=== PATIENT | female | born 1965 | race Caucasian/White ===

== ENCOUNTER 2019-11-23 08:55 | Outpatient (CLI) | payer OTHER, SELFPAY ==
--- NOTE | 2019-11-23 11:00 | NEURO_ITS ---
Patient Number: [id number] Impression: # Complains of right upper extremity paresthesia and discomfort. # No Carpal Tunnel Syndrome or ulnar neuropathy. # Normal needle/EMG exam. # Clinical correlation recommended; higher involvement needs to be ruled out. Nerve Conduction Studies Anti Sensory Summary Table Stim Site NR Peak (ms) P-T Amp (?V) Site1 Site2 Delta-P (ms) Dist (cm) Luis Eduardo (m/s) Right Median Anti Sensory (2-3nd Digit) Wrist 3.4 35.0 Wrist 2-3nd Digit 3.4 14.0 41 Wrist 5.0 30.1 Wrist 2-3nd Digit 3.4 14.0 41 Right Radial Anti Sensory (Base 1st Digit) Wrist 2.5 10.6 Wrist Base 1st Digit 2.5 0.0 Right Ulnar Anti Sensory (5th Digit) Wrist 2.4 47.1 Wrist 5th Digit 2.4 14.0 58 Motor Summary Table Stim Site NR Onset (ms) O-P Amp (mV) Site1 Site2 Delta-0 (ms) Dist (cm) Luis Eduardo (m/s) Right Median Motor (Abd Poll Brev) Wrist 3.6 2.3 Elbow Wrist 5.1 27.0 53 Elbow 8.7 2.1 Right Ulnar Motor (Abd Dig Minimi) Wrist 3.2 3.2 A Elbow Wrist 4.5 27.0 60 A Elbow 7.7 1.9 F Wave Studies NR F-Lat (ms) L-R F-Lat (ms) Right Median (Mrkrs) (Abd Poll Brev) 27.49 Right Ulnar (Mrkrs) (Abd Dig Min) 26.43 EMG Side Muscle Nerve Root Ins Act Fibs Amp Dur Recrt Comment Right 1stDorInt Ulnar C8-T1 Nml Nml Nml Nml Nml Right Ext Indicis Radial (Post Int) C7-8 Nml Nml Nml Nml Nml Right Ext Digitorum Radial (Post Int) C7-8 Nml Nml Nml Nml Nml Right BrachioRad Radial C5-6 Nml Nml Nml Nml Nml Right PronatorTeres Median C6-7 Nml Nml Nml Nml Nml Right Abd Poll Brev Median C8-T1 Nml Nml Nml Nml Nml Right ABD Dig Min Ulnar C8-T1 Nml Nml Nml Nml Nml Right Biceps Musculocut C5-6 Nml Nml Nml Nml Nml Right Triceps Radial C6-7-8 Nml Nml Nml Nml Nml MTDD
== END 2019-11-23 08:56 | disposition home or self-care (01) ==
LOC: ANHNEURO 08:57
PROVIDERS: PCP Internal Medicine Gastroenterology; Visit Provider Internal Medicine Gastroenterology
DX: R20.9 Unspecified disturbances of skin sensation (principal)
CPT/HCPCS: 95886; 95909

== ENCOUNTER 2020-01-28 08:01 | Outpatient (CLI) | payer OTHER, SELFPAY ==
--- NOTE | ~2020-01-28 | MM_ITS ---
EXAMINATION: MM screening tram BI w brain HISTORY: Screening mammogram TECHNIQUE: Craniocaudal and mediolateral oblique 3-D tomosynthesis images were obtained and synthetic 2-D images were generated. CAD analysis was submitted and interpreted. COMPARISON: 01/21/2019, 12/06/2017, 12/04/2016, 11/29/2015 BREAST PARENCHYMAL COMPOSITION: There are scattered areas of fibroglandular density. FINDINGS: RIGHT BREAST: There is possible architectural distortion best appreciated 10 cm from the nipple in th e slightly upper breast on the mediolateral oblique view. LEFT BREAST: There is no evidence of suspicious mass, calcification, or architectural distortion to s uggest malignancy. There has been no significant interval change. IMPRESSION: 1. Possible right breast architectural distortion. 2. Additional mammographic views and possible breast ultrasound are recommended. BI-RADS Category 0: Incomplete: Needs additional imaging evaluation. Reviewed, dictated and finalized at location A. IMPRESSION: 1. Possible right breast architectural distortion. 2. Additional mammographic views and possible breast ultrasound are recommended . BI-RADS Category 0: Incomplete: Needs additional imaging evaluation.
--- NOTE | ~2020-01-28 | DEXA_ITS ---
Bone Density Report Name: Ami Sepulveda Age: 54 Sex: Female Ethnicity: White Date of : 1965 Indication: postmenopausal; Referring Provider: MEDARDO, ARMANDO John Study: Bone densitometry was performed. Exam Date: January 28, 2020 Accession number: [id number] Bone Density: Region BMD T-score Z-score Classification AP Spine (L1, L2) 0.952 -0.2 0.6 Normal Femoral Neck (Left) 0.722 -1.1 -0.3 Osteopenia Total Hip (Left) 0.959 0.1 0.7 Normal Total Hip Bilateral Avg 0.984 0.3 0.9 Normal Femoral Neck (Right) 0.762 -0.8 0.1 Normal Total Hip (Right) 1.008 0.5 1.1 Normal World Health Organization criteria for BMD impression classify patients as: Normal (T-score at or above -1.0), Osteopenia (T-score between -1.0 and -2.5), or Osteoporosis (T-score at or below -2.5). 10-year Fracture Risk(1): Major Osteoporotic Fracture 4.5% Hip Fracture 0.2% Reported Risk Factors: [place] (), Neck BMD=0.722, BMI=36.1 (1) FRAX(R) Version 3.08. Fracture probability calculated for an untreated patient. Fracture probability may be lower if the patient has received treatment. Clinical Information Provided by Patient: Has used the following medications: Calcium Patient maximum height was 62 Menopause Age: 51 Drinks caffeinated beverages Onset of menses at age 13 Number of children 2 Impression: The patient has low bone mass, based on the Left Femoral Neck T-score. The patient has an estimated ten-year risk of hip fracture of 0.2% and an estimated ten-year risk of major fracture of 4.5%, based on the WHO FRAX algorithm. Discussion: BONE DENSITY IS LOW AT ONE OR MORE SKELETAL SITES. This patient's lowest T-score is low at one or more skeletal sites. It meets the World Health Organization's (WHO) criteria for ?low bone mass? (T-score between -1.0 and -2.5). The patient's 10-year risk of fracture as calculated by FRAX is less than the threshold where pharmacological therapy is recommended by the National Osteoporosis Foundation (NOF). However, all treatment decisions require clinical judgment and consideration of individual patient factors, including patient preferences, comorbidities, previous drug use, risk factors not captured in the FRAX model (e.g., frailty, falls, vitamin D deficiency, increased bone turnover, interval significant decline in bone density) and possible under or overestimation of fracture risk by FRAX. The patient should follow a healthful lifestyle (good nutrition with adequate calcium and vitamin D, and appropriate weight-bearing exercise). Follow-Up: Consider repeating this study in 2 to 3 years to reassess this patient's status, or sooner if there is some new clinical indication. Reported by: [facility] on 01/28/2020 8:29:00 AM. Reviewed
== END 2020-01-28 08:02 | disposition home or self-care (01) ==
LOC: ANHIMG 08:02
PROVIDERS: PCP Internal Medicine Gastroenterology; Visit Provider Obstetrics & Gynecology
DX: Z12.31 Encounter for screening mammogram for malignant neoplasm of breast (principal); Z78.0 Asymptomatic menopausal state; R92.8 Other abnormal and inconclusive findings on diagnostic imaging of breast; M85.852 Other specified disorders of bone density and structure, left thigh
CPT/HCPCS: 77063; 77067; 77080

== ENCOUNTER 2020-02-22 11:46 | Outpatient (CLI) | payer OTHER, SELFPAY ==
--- NOTE | ~2020-02-22 | US_ITS ---
US breast RT limited DATE: 02/22/2020 12:24 INDICATION: Architectural distortion in right breast on screening mammogram of 01/20/2020 bilateral di gital screening mammogram please refer to the combined combined diagnostic mammogram and ultrasound r eport. IMPRESSION: BI-RADS Category 2: Benign Reviewed, dictated and finalized at Location A. Reviewed, dictated and finalized at location A. IMPRESSION: BI-RADS Category 2: Benign
--- NOTE | ~2020-02-22 | MM_ITS ---
EXAMINATION: MM diagnostic mammo unilat RT HISTORY: Possible right breast architectural distortion reported in right breast TECHNIQUE: Additional 3-D tomosynthesis images of the right breast were performed and synthetic 2-D i mages were generated. CAD analysis was submitted and interpreted. High resolution upper outer quadran t right breast ultrasound was performed. COMPARISON: 01/28/2020, 11/29/2015 bilateral digital screening mammogram 12/06/2017 bilateral digital screening mammogram examinations FINDINGS: MAMMOGRAPHIC FINDINGS: No reproducible mass is identified. No malignant calcification or skin thickening or retraction is ev ident. ULTRASOUND: No suspicious mass or shadowing is detected the upper outer quadrant. IMPRESSION: 1. No mammographic evidence of malignancy 2. Routine mammographic screening is recommended. BI-RADS Category 2: Benign finding(s). Reviewed, dictated and finalized at location A.
== END 2020-02-22 11:47 | disposition home or self-care (01) ==
PROVIDERS: PCP Internal Medicine Gastroenterology; Visit Provider Obstetrics & Gynecology
DX: R92.8 Other abnormal and inconclusive findings on diagnostic imaging of breast (principal)
CPT/HCPCS: 76642; 77065

== ENCOUNTER 2020-03-08 01:48 | Outpatient (CLI) | payer OTHER, SELFPAY ==
[2020-03-08 19:19] LABS: SARS-CoV-2 RNA PCR Negative
== END 2020-03-08 01:49 | disposition home or self-care (01) ==
LOC: ANHCOVIDDT 01:48
PROVIDERS: PCP Family Medicine; Visit Provider Internal Medicine Gastroenterology
DX: Z01.812 Encounter for preprocedural laboratory examination (principal); Z20.828 Contact with and (suspected) exposure to other viral communicable diseases
CPT/HCPCS: 87635; C9803; U0003

== ENCOUNTER 2020-03-10 00:55 | Day surgery (SDC) | payer OTHER, SELFPAY ==
[2020-03-03 14:10] VITALS: BMI 34.7
[2020-03-10] MEDS: LACTATED RINGERS 1,000 ML 150 ML IV CONT (07:02)
[2020-03-10 07:04] VITALS: BP 139/88; PULSE 64; RESP 16; TEMP 36.3; O2SAT 97; BMI 34.7
--- NOTE | 2020-03-10 07:42 | WPDANESEPPF ---
Anes - Initial Pre Proc Eval Procedure: Operation Date: 03/10/20 08:00 Proposed Procedures p Colonoscopy - Alex Hernandez MD Date/Time: 03/10/20 07:42 Surgeon: Alex Hernandez MD Pre Op Diagnosis: Rectal Bleeding Patient Data Age: 54 Gender: F Height: 5 ft 2 in Weight: 86.1 kg Last Vital Signs Temp 97.3 F L 03/10/20 07:04 Pulse 64 03/10/20 07:04 Resp 16 03/10/20 07:04 BP 139/88 03/10/20 07:04 Pulse Ox 97 03/10/20 07:04 Allergies Allergy/AdvReac Type Severity Reaction Status Date / Time erythromycin base Allergy Unknown Vomiting Verified 03/10/20 07:03 shellfish derived Allergy Unknown Vomiting Verified 03/10/20 07:03 Home Medications Medication Instructions Recorded Confirmed Type amlodipine 5 mg PO DAILY 03/03/20 03/03/20 History diclofenac sodium 75 mg PO DAILY 03/03/20 03/03/20 History lisinopril-hydrochlorothiazide 1 tablet PO DAILY 03/03/20 03/03/20 History Patient hx anesthesia problems: none Family hx anesthesia problems: none PMFSH Past Medical History Medical History (Updated 03/06/20 @ 09:32 by Rigoberto Adames MD) Essential (primary) hypertension Lumbar pain Osteoarthritis Sleep apnea Family History Family History Grandparent Family history of malignant neoplasm of cervix Other Family history of allergic disorder Family history of malignant neoplasm Hypertension Social History Social History Smoking status: Never smoker Alcohol intake: current Drinks per week: 6 Substance use type: does not use Living arrangements: with family Spiritual care concerns: No Anes - Eval Final PreProcedure Day of Procedure 03/10/20 07:42 Patient weight: overweight Heart: regular rate and rhythm Lungs: clear to auscultation Airway: Mallampati scale class II Neurological: alert and oriented Last oral intake: >/= 8 hours ASA classification: II Emergent: no Anesthetic plan: proceed Anesthesia type and monitoring: general GIVS and standard monitoring Informed Consent: The patient's anesthetic plan and its attendant risks and benefits were discussed with the patient/family/POA. Questions were solicited and answers provided to the satisfaction of the patient/family/POA.
--- NOTE | 2020-03-10 07:47 | WPDGICN ---
Assessment and Plan Assessment and plan (1) Rectal bleeding: Code(s): K62.5 - Hemorrhage of anus and rectum Status: Acute Additional Plan Patient has intermittent rectal bleeding. Plan is to evaluate with colonoscopy. High-fiber diet is suggested. Further recommendations will be given after endoscopy. GI Consult Note Consult date/time: 03/10/20 07:47 HPI: Ami Sepulveda is a 54 year old female seen in evaluation at the request of Dr Parra. Patient complains of intermittent rectal bleeding. She states over the last 6 months off and on has had bright red blood per rectum. This is become more intense over the last month. Typically bleeding will occur after a bowel movement. She describes it of streaks of blood on the stool. She states that but otherwise her bowel movements are normal. Past medical history is significant for a spinal fusion surgery. Review of Systems Review of Systems: All systems reviewed & are unremarkable except as noted in HPI and below PMFSH Past Medical History Medical History (Updated 03/10/20 @ 07:49 by Alex Hernandez MD) Essential (primary) hypertension Lumbar pain Osteoarthritis Sleep apnea Family History Family History Grandparent Family history of malignant neoplasm of cervix Other Family history of allergic disorder Family history of malignant neoplasm Hypertension Social History Social History Smoking status: Never smoker Alcohol intake: current Drinks per week: 6 Substance use type: does not use Living arrangements: with family Spiritual care concerns: No Meds Home Medications and Allergies Home Medications Medication Instructions Recorded Confirmed Type amlodipine 5 mg PO DAILY 03/03/20 03/03/20 History diclofenac sodium 75 mg PO DAILY 03/03/20 03/03/20 History lisinopril-hydrochlorothiazide 1 tablet PO DAILY 03/03/20 03/03/20 History Allergies Allergy/AdvReac Type Severity Reaction Status Date / Time erythromycin base Allergy Unknown Vomiting Verified 03/10/20 07:03 shellfish derived Allergy Unknown Vomiting Verified 03/10/20 07:03 Vital Signs Vital Signs - 24 hr 03/10/20 07:04 Temperature 97.3 F L Pulse Rate 64 Respiratory Rate 16 Blood Pressure 139/88 Pulse Oximetry 97 Exam Narrative: Exam Narrative: Physical exam reveals patient to be alert. Vital signs stable. HEENT exam unremarkable. Patient is anicteric. Lungs are clear to auscultation and percussion. Heart is without murmur or extra sounds. Abdominal exam bowel sounds are present soft nontender with no organomegaly. Digital external rectal exam is normal.
[2020-03-10 08:17] VITALS: BP 108/75; PULSE 73; RESP 16; O2SAT 99
[2020-03-10 08:25] VITALS: BP 108/75; PULSE 67; RESP 16; O2SAT 98
[2020-03-10 08:35] VITALS: BP 119/74; PULSE 59; RESP 18; O2SAT 100
== END 2020-03-10 08:55 | disposition home or self-care (01) ==
PROVIDERS: PCP Family Medicine; Visit Provider Internal Medicine Gastroenterology
PROC: 0DJD8ZZ Inspection of Lower Intestinal Tract, Via Natural or Artificial Opening Endoscopic (ICD-10-PCS; CPT 45378; principal; 2020-03-10 08:00)
DX: K62.5 Hemorrhage of anus and rectum (principal); D12.5 Benign neoplasm of sigmoid colon; K62.1 Rectal polyp; K64.8 Other hemorrhoids; I10 Essential (primary) hypertension; G47.30 Sleep apnea, unspecified
CPT/HCPCS: 45385; 88305; J2001; J2704; J7120

== ENCOUNTER 2020-03-11 07:28 | Outpatient (CLI) | payer OTHER, SELFPAY ==
--- NOTE | ~2020-03-11 | MR_ITS ---
EXAMINATION: MR cervical spine wo con DATE: 03/11/2020 08:18 INDICATION: Neck pain. Bilateral shoulder pain. Bilateral arm numbness and weakness. TECHNIQUE: Magnetic resonance imaging (MRI) of the cervical spine was performed without intravenous c ontrast. Sequences included sagittal T2-weighted FSE, sagittal T2-weighted FS FSE, sagittal T1-weight ed FSE, axial MERGE, and axial T2-weighted FSE. COMPARISON: None FINDINGS: There is kyphosis of cervical spine. There is 2 mm anterolisthesis of C4 on C5 and 2 mm ret rolisthesis of C5 on C6 and C6 on C7. Vertebral body heights are normal. There is mildly decreased di sc height at C4-C5, severely decreased disc height at C5-C6, and moderately decreased disc height at C6-C7. The spinal cord signal intensity is normal. The following disc levels are specifically discuss ed: C2-C3: The disc does not extend beyond the endplate margin. There is no uncovertebral joint osteoarth ritis. There is mild right and severe left facet joint osteoarthritis. There is mild left neural fora susan stenosis. There is no central canal stenosis. C3-C4: The disc is mildly bulging. There is mild bilateral uncovertebral joint osteoarthritis. There is severe right and moderate left facet joint osteoarthritis. There is mild bilateral neural foramina l stenosis. There is mild central canal stenosis. C4-C5: The disc does not extend beyond the endplate margin. There is mild bilateral uncovertebral angie nt osteoarthritis. There is mild right and severe left facet joint osteoarthritis. There is mild bila teral neural foraminal stenosis. There is no central canal stenosis. C5-C6: The disc is bulging. There is severe right and mild left uncovertebral joint osteoarthritis. T here is mild bilateral facet joint osteoarthritis. There is moderate right and mild left neural stiven inal stenosis. There is mild central canal stenosis with ventral indentation of spinal cord. C6-C7: The disc is bulging. There is moderate bilateral uncovertebral joint osteoarthritis. There is mild bilateral facet joint osteoarthritis. There is mild right and moderate left neural foraminal jean carlos nosis. There is mild central canal stenosis with ventral indentation of the spinal cord. C7-T1: The disc does not extend beyond the endplate margin. There is no uncovertebral joint osteoarth ritis. There is moderate right and severe left facet joint osteoarthritis. There is mild right and mo derate left neural foraminal stenosis. There is no central canal stenosis. IMPRESSION: 1. Severe cervical spondylosis. Reviewed, dictated and finalized at location A.
== END 2020-03-11 07:29 | disposition home or self-care (01) ==
PROVIDERS: PCP Family Medicine; Visit Provider Psychiatry & Neurology Neurology
DX: R20.9 Unspecified disturbances of skin sensation (principal); M47.812 Spondylosis without myelopathy or radiculopathy, cervical region
CPT/HCPCS: 72141

== ENCOUNTER 2020-10-31 18:09 | Emergency (ER) | payer OTHER, SELFPAY ==
[2020-10-31 18:33] VITALS: BP 148/100; PULSE 80; RESP 16; TEMP 37.4; O2SAT 99
--- NOTE | 2020-10-31 19:53 | ED.ANIMALBIT ---
HPI - Animal Bite General Chief Complaint: Animal Bite Stated Complaint: dog bite Time Seen by Provider: 10/31/20 18:44 Source: patient and RN notes reviewed Mode of arrival: ambulatory Limitations: no limitations History of Present Illness HPI narrative: Patient presents today complaining of a dog bite to her left forearm that was sustained 2 days ago. She is up-to-date on all vaccines. The dog is up-to-date on vaccines. She has been treating with ice, peroxide, and triple antibiotic ointment. She reports severe pain to her forearm with swelling and redness. She currently rates her pain 7/10. She is unable to attend work due to severe pain. Her sleep has been affected due to pain. MD complaint: animal bite Related Data Home Medications Medication Instructions Recorded Confirmed amlodipine 5 mg PO DAILY 03/03/20 10/31/20 Allergies Allergy/AdvReac Type Severity Reaction Status Date / Time erythromycin base Allergy Unknown Vomiting Verified 10/31/20 18:40 shellfish derived Allergy Unknown Vomiting Verified 10/31/20 18:40 Review of Systems Review of Systems: Narrative: CONSTITUTIONAL: Denies body aches, fever, chills, or sweats. EYES: Denies visual changes, redness, or discharge. ENT: Denies rhinorrhea, congestion, sore throat, or otalgia. CARDIOVASCULAR: Denies chest pain, palpitations, or edema. RESPIRATORY: Denies cough or dyspnea. GASTROINTESTINAL: Denies abdominal pain, nausea, vomiting, or diarrhea. GENITOURINARY: Denies dysuria or hematuria. SKIN: Denies rash, itching. + Dog bite to left forearm MUSCULOSKELETAL: Denies back pain, joint pain, or myalgia. NEUROLOGIC: Denies headache, numbness, tingling, or weakness. PSYCH: Denies depression or anxiety. [facility] Past Medical History Medical History BMI 34.0-34.9,adult Essential (primary) hypertension Lumbar pain Osteoarthritis Sleep apnea Family History Family History Grandparent Family history of malignant neoplasm of cervix Other Family history of allergic disorder Family history of malignant neoplasm Hypertension Social History Social History Alcohol intake: current Drinks per week: 6 Substance use type: does not use Spiritual care concerns: No Comments At time of signature, I have reviewed and agree with nursing past medical, surgical, social and family history unless otherwise noted. Please see nursing chart for further information. There is no relevant family history pertinent to the presenting complaint Exam Narrative: Exam Narrative: GENERAL: Well-appearing, well-nourished, and in moderate pain distress. HEAD: Normocephalic, atraumatic. EYES: EOMI. No redness or drainage. Conjunctivae normal. ENT: Mucous membranes pink and moist. NECK: Normal AROM. CHEST: No respiratory distress. EXTREMITIES: 2 x 0.5 cm dog bite wound to the dorsum of the left forearm. This is surrounded in a 7 x 11 cm area of erythema and edema to the dorsum of the forearm. Along the volar aspect of the arm, there is no dog bite, but there is an area of erythema and localized edema measuring approx 8x4cm. No induration or fluctuance noted. Entirety of the soft tissue of the forearm is very tender to palpation. There is no bony tenderness of the forearm noted. Patient has full range of motion of the wrist and elbow. Pronation and supination of the wrist does cause some discomfort in the forearm. Distal sensation intact. Capillary refill normal. Radial pulse normal. SKIN: Warm, dry, no rash. Capillary refill normal. Normal skin turgor. NEURO: No focal deficits. Alert and oriented x3. Gait steady. PSYCH: Normal affect. No signs of depression or anxiety. Course Course Emergency Course: Patient is a significant infection in her forearm, which could be related to covering
== END 2020-10-31 19:11 | disposition home or self-care (01) ==
PROVIDERS: Emergency Provider Nurse Practitioner; PCP Family Medicine
DX: S51.852A Open bite of left forearm, initial encounter (principal); W54.0XXA Bitten by dog, initial encounter; L08.9 Local infection of the skin and subcutaneous tissue, unspecified; I10 Essential (primary) hypertension; M19.90 Unspecified osteoarthritis, unspecified site; G47.30 Sleep apnea, unspecified
CPT/HCPCS: 99213; G0463

== ENCOUNTER 2021-03-19 15:38 | Outpatient (CLI) | payer OTHER, SELFPAY ==
--- NOTE | ~2021-03-19 | MM_ITS ---
EXAMINATION: MM screening tram BI w brain HISTORY: Screening mammogram TECHNIQUE: Craniocaudal and mediolateral oblique 3-D tomosynthesis images were obtained and synthetic 2-D images were generated. CAD analysis was submitted and interpreted. COMPARISON: 02/22/2020 diagnostic right mammogram and limited right breast ultrasound 01/20/2020, 01/21/2019, 12/06/2017 bilateral digital screening mammogram examinations BREAST PARENCHYMAL COMPOSITION: There are scattered areas of fibroglandular density. FINDINGS: There is no evidence of suspicious mass, calcification, or architectural distortion to sugg est malignancy in either breast. There has been no suspicious interval change. IMPRESSION: 1. No mammographic evidence of malignancy. 2. Recommend routine screening mammography in one year. BI-RADS Category 1: Negative Reviewed, dictated and finalized at location A.
== END 2021-03-19 15:39 | disposition home or self-care (01) ==
LOC: ANHIMG 15:44
PROVIDERS: PCP Family Medicine; Visit Provider Obstetrics & Gynecology
DX: Z12.31 Encounter for screening mammogram for malignant neoplasm of breast (principal)
CPT/HCPCS: 77063; 77067

== ENCOUNTER 2021-08-21 08:51 | Outpatient (CLI) | payer OTHER, SELFPAY ==
[2021-08-21 09:27] LABS: Hematocrit 41.8 % (37.0-47.0); Hemoglobin 14.1 g/dL (12.0-15.0); Mean Corpuscular HGB Conc 33.7 g/dl (32-36); Mean Corpuscular Hemoglobin 30.6 pg (26-34); Mean Corpuscular Volume 90.7 fl (80-100); Mean Platelet Volume 9.5 fl (7.4-10.4); Platelet Count Result 254 k/mm3 (150-375); Red Blood Count 4.61 M/mm3 (4.2-5.4); Red Cell Distribution Width 13.4 % (11.5-14.5); White Blood Count 5.5 K/mm3 (4.5-10.0)
[2021-08-21 09:40] LABS: Anion Gap 5 mmol/L (8-16); Blood Urea Nitrogen 12 mg/dL (7-17); Calcium 8.9 mg/dL (8.4-10.2); Carbon Dioxide 30 mmol/L (22-30); Chloride 102 mmol/L (98-107); Cholesterol 220 mg/dL (0-200); Estimated Glomerular Filt Rate > 60; Glucose 101 mg/dL (65-110); HDL Direct 43 mg/dL; Potassium 4.1 mmol/L (3.4-5.0); Sodium 137 mmol/L (137-145); Triglycerides 185 mg/dL (<150)
[2021-08-21 09:48] LABS: LDL Cholesterol Direct 125 mg/dL
== END 2021-08-21 08:52 | disposition home or self-care (01) ==
LOC: ANHLAB 09:01
PROVIDERS: PCP Family Medicine; Visit Provider Family Medicine
DX: Z13.220 Encounter for screening for lipoid disorders (principal); I10 Essential (primary) hypertension
CPT/HCPCS: 36415; 80048; 80061; 84443; 85027

== ENCOUNTER 2022-04-03 07:54 | Outpatient (CLI) | payer OTHER, SELFPAY ==
--- NOTE | ~2022-04-03 | MM_ITS ---
EXAMINATION: MM screening tram BI w brain HISTORY: Screening TECHNIQUE: Craniocaudal and mediolateral oblique 3-D tomosynthesis images were obtained and synthetic 2-D images were generated. CAD analysis was submitted and interpreted. COMPARISON: Comparison to multiple prior studies sequentially, with oldest reviewed study dated 09/2016. BREAST PARENCHYMAL COMPOSITION: Comparison to multiple prior studies sequentially, with oldest review ed study dated 12/04/2016. FINDINGS: There is no evidence of suspicious mass, calcification, or architectural distortion to sugg est malignancy in either breast. There has been no suspicious interval change. IMPRESSION: 1. No mammographic evidence of malignancy. 2. Recommend routine screening mammography in one year. BI-RADS Category 1: Negative Reviewed, dictated and finalized at location A.
== END 2022-04-03 07:55 | disposition home or self-care (01) ==
PROVIDERS: PCP Family Medicine; Visit Provider Obstetrics & Gynecology
DX: Z12.31 Encounter for screening mammogram for malignant neoplasm of breast (principal)
CPT/HCPCS: 77063; 77067

== ENCOUNTER 2022-08-15 07:05 | Outpatient (CLI) | payer OTHER, SELFPAY ==
[2022-08-15 07:29] LABS: Hematocrit 38.8 % (37.0-47.0); Hemoglobin 13.7 g/dL (12.0-15.0); Mean Corpuscular HGB Conc 35.3 g/dl (32-36); Mean Corpuscular Hemoglobin 30.7 pg (26-34); Mean Platelet Volume 9.4 fl (7.4-10.4); Platelet Count Result 291 k/mm3 (150-375); Red Blood Count 4.46 M/mm3 (4.2-5.4); Red Cell Distribution Width 12.6 % (11.5-14.5); White Blood Count 6.1 K/mm3 (4.5-10.0)
[2022-08-15 07:45] LABS: Anion Gap 4 mmol/L (8-16); Blood Urea Nitrogen 13 mg/dL (7-17); Calcium 9.1 mg/dL (8.4-10.2); Carbon Dioxide 31 mmol/L (22-30); Chloride 99 mmol/L (98-107); Cholesterol 205 mg/dL (0-200); Estimated Glomerular Filt Rate > 60; Glucose 100 mg/dL (65-110); HDL Direct 37 mg/dL; Potassium 4.1 mmol/L (3.4-5.0); Sodium 134 mmol/L (137-145); Triglycerides 208 mg/dL (<150)
[2022-08-15 07:55] LABS: LDL Cholesterol Direct 126 mg/dL
[2022-08-15 08:43] LABS: Hemoglobin A1C 5.3 % (<5.7)
== END 2022-08-15 07:06 | disposition home or self-care (01) ==
PROVIDERS: PCP Family Medicine; Visit Provider Family Medicine
DX: I10 Essential (primary) hypertension (principal); Z13.220 Encounter for screening for lipoid disorders; R73.09 Other abnormal glucose
CPT/HCPCS: 36415; 80048; 80061; 83036; 84443; 85027

== ENCOUNTER 2023-05-28 15:43 | Outpatient (CLI) | payer OTHER, SELFPAY ==
--- NOTE | ~2023-05-28 | MM_ITS ---
EXAMINATION: MM screening tram BI w brain HISTORY: Screening mammogram TECHNIQUE: Craniocaudal and mediolateral oblique 3-D tomosynthesis images were obtained and synthetic 2-D images were generated. CAD analysis was submitted and interpreted. COMPARISON: 04/2022, 03/19/2021 bilateral screening mammogram examinations BREAST PARENCHYMAL COMPOSITION: There are scattered areas of fibroglandular density. FINDINGS: There is no evidence of suspicious mass, calcification, or architectural distortion to sugg est malignancy in either breast. There has been no suspicious interval change. IMPRESSION: 1. No mammographic evidence of malignancy. 2. Recommend routine screening mammography in one year. BI-RADS Category 1: Negative Reviewed, dictated and finalized at location A. [facility]
== END 2023-05-28 15:44 | disposition home or self-care (01) ==
LOC: ANHIMG 15:45
PROVIDERS: PCP Family Medicine; Visit Provider Obstetrics & Gynecology
DX: Z12.31 Encounter for screening mammogram for malignant neoplasm of breast (principal)
CPT/HCPCS: 77063; 77067

== ENCOUNTER 2024-07-09 08:02 | Outpatient (CLI) | payer OTHER, SELFPAY ==
--- NOTE | ~2024-07-09 | MM_ITS ---
EXAMINATION: MM screening [facility] BI w brain HISTORY: Screening mammogram TECHNIQUE: Craniocaudal and mediolateral oblique 3-D tomosynthesis images were obtained and synthetic 2-D images were generated. CAD analysis was submitted and interpreted. COMPARISON: 05/28/2023, 04/03/2022, 03/19/2021 BREAST PARENCHYMAL COMPOSITION:Not Dense. There are scattered areas of fibroglandular density. FINDINGS: No suspicious mass, calcification, or architectural distortion are identified in either ciarra ast to suggest malignancy. There has been no suspicious interval change. IMPRESSION: No mammographic evidence of malignancy. Recommend routine screening mammography in one year. BI-RADS Category 1: Negative Reviewed, dictated and finalized at location . Y LEVEL PROJECT COORDINATOR
--- OUTSIDE RECORDS SUMMARY | 2024-07-09 08:10 | XMS_ITS | Referral Summary ---
Author Organization [facility] Building [address] [place] [phone] Care Team Providers Care Felt Checker Name Role Phone Rigoberto Adames MD Primary Care Provider Encounters Date Type Department Care Team Description 07/02/2024 Telephone [facility] Medical [facility] Orthopedics and Sports Medicine [address] [place] [phone] Matt Pfeiffer PA meds 06/30/2024 1:02 PM PRODUCTION COORDINATOR - 06/30/2024 11:59 PM PRODUCTION COORDINATOR Hospital Encounter [facility] Imaging [address] [place] [id number] Right knee pain, unspecified chronicity Discharge Disposition: Discharge to home or self care 06/30/2024 1:30 PM PRODUCTION COORDINATOR Office Visit [facility] Orthopedics and Sports Medicine [address] [place] [phone] Matt Pfeiffer PA Chronic pain of right knee (Primary Dx) 05/19/2024 9:17 AM PRODUCTION COORDINATOR - 05/19/2024 11:59 PM PRODUCTION COORDINATOR Hospital Encounter [address] [address] Essential hypertension, malignant Discharge Disposition: Discharge to home or self care 05/19/2024 9:15 AM PRODUCTION COORDINATOR Lab [facility] Medical Group Outpatient Lab at [address] [phone] Essential hypertension, malignant (Primary Dx) from Last 3 Months Allergies Active Allergy Reactions Criticality Noted Date Comments Erythromycin Base Unknown 12/28/2018 Shellfish Containing Products Nausea & Vomiting Low 02/13/2018 Medications lisinopril-hydro CHLOROthiazide (PRINZIDE,ZESTOR ETIC) 20-12.5 mg per tabletIndication s:hypertension 02/09/2018 Acti ve amLODIPine (NORVASC) 5 mg tablet Take 5 mg by mouth daily. Active calcium carbonate-vitami n D3 (CALTRATE 600 + D) 1500 mg (600 mg elemental) -400 units per tablet Take 1 tablet by mouth daily Active acetaminophen ER (TYLENOL) 650 mg 8 hr tablet Take 650 mg by mouth every 8 (eight) hours as needed for pain Active Active Problems No known active problems Social History Tobacco Use Types Packs/Day Years Used Date Smoking Tobacco: Never Smokeless Tobacco: Never Alcohol Use Standard Drinks/Week Comments Yes 0 (1 standard drink = 0.6 oz pur e alcohol) socially Comments Unknown Sex and Gender Information Value Date Recorded Sex Assigned at Not on file Legal Sex Female 9:06 AM CDT Gender Identity Not on file Sexual Orientation Not on file 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 file Not on file Not on file Last Filed Vital Signs Vital Sign Reading Time Taken Comments Blood Pressure 108/70 11/16/2019 9:26 AM CDT Pulse 80 09/28/2018 9:44 AM CDT Temperature 36.2 C (97.1 F) 07/24/2021 8:56 AM PRODUCTION COORDINATOR Respiratory Rate - - Oxygen Saturation - - Inhaled Oxygen Concentration - - Weight 68 kg (150 lb) 06/30/2024 1:11 PM PRODUCTION COORDINATOR Height 157.5 cm (5' 2 ) 06/30/2024 1:11 PM PRODUCTION COORDINATOR Body Mass Index 27.44 06/30/2024 1:11 PM PRODUCTION COORDINATOR Plan of Treatment Not on file Procedures Procedure Name Priority Date/Time Associated Diagnosis Comments XR KNEE RIGHT 3 VIEWS Schedule Routine, Read Routine (OP Routine) 06/30/2024 1:03 PM PRODUCTION COORDINATOR Right knee pain, unspecified chronicity EGFR Routine 05/19/2024 9:17 AM PRODUCTION COORDINATOR Essential hypertension, malignant TSH Routine 05/19/2024 9:17 AM PRODUCTION COORDINATOR Essential hypertension, malignant BASIC METABOLIC PANEL Routine 05/19/2024 9:17 AM PRODUCTION COORDINATOR Essential hypertension, malignant CBC WITHOUT DIFFERENTIAL Routine 05/19/2024 9:17 AM PRODUCTION COORDINATOR Essential hypertension, malignant LIPID PANEL Routine 05/19/2024 9:17 AM PRODUCTION COORDINATOR Essential hypertension, malignant from Last 3 Months Results * XR Knee Right 3 Views (06/30/2024 1:03 PM PRODUCTION COORDINATOR) Anatomical Region Laterality Modality Lower Extremities, Knee Right Computed Radiography 07/03/2024 7:20 AM PRODUCTION COORDINATOR Narrative 07/03/2024 7:20 AM PRODUCTION COORDINATOR EXAM DESCRIPTION: XR KNEE RIGHT 3 VIEWS REASON FOR STUDY: pain Medial side knee pain x 5 wks, NKI FINDINGS: Three views of the right knee are submitted for interpretation without comparison. The alignment of the right knee is anatomic. Joint spaces are normal. No fracture or effusion. IMPRESSION: Normal right knee radiographs. THIS IS AN ELECTRONICALLY VERIFIED FINAL REPORT 07/03/2024 7:20 AM - Electronically signed by Jeancarols Petersen M.D. T: Report ID: [id number] Reading Location: [id number] Procedure Note Jeancarlos Petersen MD - 07/03/2024 EXAM DESCRIPTION: XR KNEE RIGHT 3 VIEWS REASON FOR STUDY: pain Medial side knee pain x 5 wks, NKI FINDINGS: Three views of the right knee are submitted for interpretation without comparison. The alignment of the right knee is anatomic. Joint spaces are normal. No fracture or effusion. IMPRESSION: Normal right knee radiographs. THIS IS AN ELECTRONICALLY VERIFIED FINAL REPORT 07/03/2024 7:20 AM - Electronically signed by Jeancarlos Petersen M.D. T: Report ID: [id number] Reading Location: [id number] Matt [facility] IMG XR PROCEDURES Final R esult * eGFR (05/19/2024 9:17 AM PRODUCTION COORDINATOR) Pathologist [facility] [place] eGFR 72 >=60 mL/min/1. 73 m2 Comment: Interpretive Data Reference Interval Normal >/= 90 mL/min/1.73m2 Mildly decreased* 60 - 89 mL/min/1.73m2 Mildly to moderately decreased 45 - 59 mL/min/1.73m2 Moderately to severely decreased 30 - 44 mL/min/1.73m2 Severely decreased 15 - 29 mL/min/1.73m2 Kidney Failure < 15 mL/min/1.73m2 *Relative to young adult level Estimated glomerular filtration rate is determined by the 2020 CKD-EPI equation recommended by the National Kidney Foundation (A Unifying Approach to GFR Estimation: Recommendations of the NKF-ASK Task Force on Reassessing the Inclusion of Race in Diagnosing Kidney Disease, JASN 2020). The CKD-EPI equation should not be used for patients with unstable renal function and has not been validated in children and those over 70. Current interpretive data was last reviewed 2021. Blood 05/19/2024 9:17 AM PRODUCTION COORDINATOR 05/19/2024 10:26 PM PRODUCTION COORDINATOR us Rigoberto Estrellita Adames MD LAB BLOOD ORDERABLES Final R esult [facility] [id number] Department [place] [address] * (ABNORMAL) CBC without differential (05/19/2024 9:17 AM PRODUCTION COORDINATOR) Pathologist [facility] [place] WBC 5.3 3.8 - 9.9 K/cumm Hgb 14.0 11.9 - 15.5 g/dL [facility] Hct 44.0 35.6 - 45.5 % [facility] Plt 264 150 - 400 K/cumm [facility] MPV 10.2 9.1 - 12.3 fL [facility] RBC 4.49 3.90 - 5.20 M/cumm [facility] MCV 98.0(H) 81.3 - 96.4 fL [facility] MCH 31.2 27.1 - 33.3 pg [facility] MCHC 31.8(L) 32.3 - 35.7 g/dL [facility] RDW CV 13.6 11.1 - 14.9 % [facility] RDW SD 49.3(H) 35.7 - 48.1 fL [facility] NRBC abs 0.00 0.00 - 0.01 K/cumm [facility] Blood (Blood, Venous) 05/19/2024 9:17 AM PRODUCTION COORDINATOR 05/19/2024 6:57 PM PRODUCTION COORDINATOR Narrative [facility] - 05/19/2024 9:42 PM PRODUCTION COORDINATOR Fax results To Dr Rigoberto Adames [phone] Rigoberto Adames MD LAB BLOOD ORDERABLES Final R esult Performing Organization Address City/[facility] Co de Phone Number [facility] [phone] [place] [address] * TSH (05/19/2024 9:17 AM PRODUCTION COORDINATOR) Pathologist [facility] [place] Thyroid Stimulating Hormone 1.33 0.30 - 4.20 mcIUnit/mL Blood (Blood, Venous) 05/19/2024 9:17 AM PRODUCTION COORDINATOR 05/19/2024 6:57 PM PRODUCTION COORDINATOR Narrative KARTIK - 05/19/2024 10:58 PM PRODUCTION COORDINATOR Fax results To Dr Rigoberto Adames [phone] Rigoberto Adames MD LAB BLOOD ORDERABLES Final R esult Performing Organization Address City/[facility] Co de Phone Number K[facility]IK URIARTE [phone] [employer] [place], [place] [phone] * (ABNORMAL) Lipid panel (05/19/2024 9:17 AM PRODUCTION COORDINATOR) Cholesterol 213(H) 30 - 199 mg/dL Comment: Interpretive Data Ages < or = 19 years Acceptable: <170 mg/dL Borderline high: 170-199 mg/dL High: >or= 200 mg/dL Ages > or = 20 years Desirable: <200 mg/dL Borderline high: 200-239 mg/dL High: >or= 240 mg/dL Literature References: 1. Expert Panel on Integrated Guidelines for Cardiovascular Health and Risk Reduction in Children and Adolescents. Pediatrics 2011;128:S213 2. NCEP Expert Panel. Circulation 2004;110:227 Current Interpretive Data was last revised on 2018. Triglycerides 116 <=149 mg/dL [facility]IK Comment: Interpretive Data Ages < or = 9 years Acceptable: <75 mg/dL Borderline high: 75-99 mg/dL High: >or= 100 mg/dL Ages 10 to 20 years Acceptable: <90 mg/dL Borderline high: 90-129 mg/dL High: >or= 130 mg/dL Ages > or = 20 years Desirable: <150 mg/dL Borderline high: 150-199 mg/dL High: 200-499 mg/dL Very high: >or= 499 mg/dL Literature References: 1. Expert Panel on Integrated Guidelines for Cardiovascular Health and Risk Reduction in Children and Adolescents. Pediatrics 2011;128:S213 2. NCEP Expert Panel. Circulation 2004;110:227 Current Interpretive Data was last revised on 2018. HDL 50 >=40 mg/dL [facility] URIARTE Comment: Interpretive Data Ages < or = 19 years Acceptable: >45 mg/dL Borderline low: 40-45 mg/dL Low: <40 mg/dL Ages > or = 20 years Desirable: >or= 60 mg/dL Low: <40 mg/dL Literature References: 1. Expert Panel on Integrated Guidelines for Cardiovascular Health and Risk Reduction in Children and Adolescents. Pediatrics 2011;128:S213 2. NCEP Expert Panel. Circulation 2004;110:227 Current Interpretive Data was last revised on 2018. LDL, calculated 142(H) <=129 mg/dL [facility]IK Comment: Interpretive Data Ages < or = 19 years Acceptable: <110 mg/dL Borderline high: 110-129 mg/dL High: >or= 130 mg/dL Ages > or = 20 years Optimal: <100 mg/dL Near optimal: 100-129 mg/dL Borderline high: 130-159 mg/dL High: >160 mg/dL Calculated using the Pedraza LDL-C estimating equation. This equation was implemented on 2024. Prior to this date LDL-C was estimated using the Friedewald equation. Literature References: 1. Expert Panel on Integrated Guidelines for Cardiovascular Health and Risk Reduction in Children and Adolescents. Pediatrics 2011;128:S213 2. NCEP Expert Panel. Circulation 2004;110:227 3. Milo M et al. ANGELA Cardiol. 2020 September 30;5(5):540-548. doi: 10.1001/jamacardio.2020.0013 Current Interpretive Data was last revised on 2024. Non-HDL Cholesterol 163 mg/dL [facility] Comment: Interpretive Data Ages < or = 19 years Acceptable: <120 mg/dL Borderline high: 120-144 mg/dL High: >145 mg/dL Ages > or = 20 years When triglycerides are >200 mg/dL, Non-HDL cholesterol is a secondary target of therapy with treatment goals that are 30 mg/dL greater than the LDL cholesterol target. Literature References: 1. Expert Panel on Integrated Guidelines for Cardiovascular Health and Risk Reduction in Children and Adolescents. Pediatrics 2011;128:S213 2. NCEP Expert Panel. Circulation 2004;110:227 Current Interpretive Data was last revised on 2018. Chol/HDL ratio 4 [facility] Blood (Blood, Venous) 05/19/2024 9:17 AM PRODUCTION COORDINATOR 05/19/2024 6:57 PM PRODUCTION COORDINATOR Narrative [facility] - 05/19/2024 10:58 PM PRODUCTION COORDINATOR Fax results To Dr Rigoberto Adames [phone] us Rigobertomariza Adames MD LAB BLOOD ORDERABLES Final R esult [facility] [id number] Department [place] [address] * Basic metabolic panel (05/19/2024 9:17 AM PRODUCTION COORDINATOR) Sodium 138 135 - 145 mmol/L Potassium, pl 4.5 3.3 - 4.9 mmol/L [facility] Chloride 103 97 - 110 mmol/L [facility] CO2 27 22 - 32 mmol/L [facility] Anion gap 8 2 - 15 mmol/L [facility] BUN 13 6 - 25 mg/dL [facility] Creatinine 0.93 0.60 - 1.10 mg/dL [facility] Glucose 86 70 - 199 mg/dL [facility] Comment: Interpretive Data Fasting glucose >/= 126 mg/dl is diagnostic for diabetes. Fasting is defined as no caloric intake for at least 8 hours. Fasting glucose between 100 mg/dl to 125 mg/dl is diagnostic of prediabetes. In a patient with classic symptoms of hyperglycemia or hyperglycemic crisis, a random glucose >/= 200 mg/dl is diagnostic for diabetes. In the absence of unequivocal hyperglycemia, results should be confirmed by repeat testing. The classification and Diagnosis of Diabetes Diabetes Care 202; 46: S19-S40. Current interpretive data was last revised 2022. Calcium 9.9 8.5 - 10.3 mg/dL [facility] Blood 05/19/2024 9:17 AM PRODUCTION COORDINATOR 05/19/2024 6:57 PM PRODUCTION COORDINATOR Narrative KARTIK - 05/19/2024 10:58 PM PRODUCTION COORDINATOR Fax results To Dr Rigoberto Adames [phone] Rigobertomariza Adames MD LAB BLOOD ORDERABLES Final R esult [facility] [id number] Department [place] [address] from Last [address] [facility]/O Address: [facility] [id number] [place] [address] [employer] OPEN ACCESS [facility] [employer] [facility] [employer] Care Teams Felt Checker Relationship Specialty Start Date End Date Rigoberto Adames MD PCP - General Family Medicine 12/01/20
--- OUTSIDE RECORDS SUMMARY | 2024-07-09 08:10 | XMS_ITS | Data Portability ---
Author Organization Onur WOMACK Address [address] [place] [address] Assessment No assessment recorded. Plan of Treatment Reminders Order Date Submit Date Provider Last Modified By Organization Details Last Modified Time Details Appointments None recorded . 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 [place] 1215 2019 020 [facility] (Lab), [address], [place], [address], 0 10:40:24 Referral neurolog ist referral - Please call patient to schedule appt. Thank you 2019 SHYAM Not available 0 15:22:[address] referral - Please call patient to schedule appt. Thank you 2019 020 km Hernandez MD, [address] [facility] [address], [address], [place], [address], 0 16:29:30 Procedures nerve conducti on study/EM G, upper extremit y (PROC) 2019 [facility] (Cardiology & Emg), [address] [facility] [address], [place], [address], 0 16:37:13 Surgeries None recorded . Imaging bone density 2019 [facility] (Admitting), [address] [facility] [address], [place], [address], 0 15:36:31 MRI, cervical spine, w/o contrast [email or web address] [place] [address] (Imaging), [address] [facility] [address], [place], [address], 0 12:29:07 Medication Orders diclofen ac sodium 75 mg tablet,d elayed release 2019 [facility]FACE [id number], [address], [place], [address], 0 11:39:46 famotidi ne 20 mg tablet 2019 INTERFACE [id number], [address], [place], [address], 0 11:39:45 amlodipi ne 5 mg tablet 2019 020 INTERFACE [id number], [address], [place], [address], 0 11:39:46 lisinopr il 20 mg-hydro chloroth iazide 12.5 mg tablet 2019 020 [id number], [address], [place], [address], 0 11:39:45 gabapent in 100 mg capsule 2019 020 [email or web address] [id number], [address], [place], [address], 0 15:57:53 Patient TargetsNo targets recorded. Patient Instructions Encounter Date Encounter Id Patient Instructions Last Modified By Organization Details Last Modified Time 11/25/2019 [id number] Reviewed the following recommendations: -Stay home and separate from others as much as possible. -Monitor your symptoms and seek medical attention for trouble breathing, persistent chest pain, confusion, or bluish lips or face. -Wear a mask if you must be around other people. -Wash your hands often for 20 seconds with soap and water and clean high-touch surfaces daily -You may discontinue home isolation if your symptoms are improving and it has been 10 days since symptoms started. [email or web address] Not available 11/25/2019 13:09:55 Reason for Referral Neurologist Referral for Abn ormal sensation Progressive abnormal sensation and pain from neck into RUE. Early sx now beginning on left Please call patient to schedule appt. 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 Thank you Referring Physician: Gilmer Parra, Internal Medicine, Encounter Date: 01/19/2020 Results Created Date Observation Date Name Description Value Unit Range Abnormal Flag Note LastModifiedBy Organization Detail LastModifiedTime 08/02/1908/03/2019 CMP, serum or plasm a glucose 75 mg/dL 65-99 Not Available [facility] ([facility]) [address] [place], [address], 08/03/2019 09:12:20 08/02/19 20 08/03/2019 CMP, serum or plasm a BUN 12 mg/dL 6-24 Not Available [facility] ([facility]) [address] [place], [address], 08/03/2019 09:12:20 08/02/19 20 08/03/2019 CMP, serum or plasm a creatinine 0.69 mg/dL 0.57-1 .00 Not Available [facility] ([facility]) [address] [place], [address], 08/03/2019 09:12:20 08/02/19 20 08/03/2019 CMP, serum or plasm a eGFR if nonafricn AM 101 mL/mi n/1.7 3 >59 Not Available [facility] ([facility]) [address] [place], [address], 08/03/2019 09:12:20 08/02/1908/03/2019 CMP, serum or plasm a eGFR if africn AM 117 mL/mi n/1.7 3 >59 Not Available [facility] ([facility]) [address] [place], [address], 08/03/2019 09:12:20 08/02/1908/03/2019 CMP, serum or plasm a BUN/creatini ne ratio 17 9-23 Not Available [facility] ([facility]) [address] [place], [address], 08/03/2019 09:12:20 08/02/1908/03/2019 CMP, serum or plasm a sodium 140 mmol/ L 134-14 4 Not Available [facility] ([facility]) [address] [place], [address], 08/03/2019 09:12:20 08/02/19 20 08/03/2019 CMP, serum or plasm a potassium 4.2 mmol/ L 3.5-5. 2 Not Available [facility] ([facility]) [address] [place], [address], 08/03/2019 09:12:20 08/02/19 20 08/03/2019 CMP, serum or plasm a chloride 100 mmol/ L 96-106 Not Available [facility] ([facility]) [address] [place], [address], 08/03/2019 09:12:20 08/02/1908/03/2019 CMP, serum or plasm a carbon dioxide, total 25 mmol/ L 20-29 Not Available [facility] ([facility]) [address] [place], [address], 08/03/2019 09:12:20 08/02/1908/03/2019 CMP, serum or plasm a calcium 10.0 mg/dL 8.7-10 .2 Not Available [facility] ([facility]) [address] [place], [address], 08/03/2019 09:12:20 08/02/1908/03/2019 CMP, serum or plasm a protein, total 7.7 g/dL 6.0-8. 5 Not Available [facility] ([facility]) [address] [place], [address], 08/03/2019 09:12:20 08/02/1908/03/2019 CMP, serum or plasm a albumin 4.9 g/dL 3.8-4. 9 Ernst ified by josue alejandra Not Available [facility] ([facility]) [address] [place], [address], 08/03/2019 09:12:20 08/02/1908/03/2019 CMP, serum or plasm a globulin, total 2.8 g/dL 1.5-4. 5 Not Available [facility] ([facility]) [address] [place], [address], 08/03/2019 09:12:20 08/02/1908/03/2019 CMP, serum or plasm a A/G ratio 1.8 1.2-2. 2 Not Available [facility] ([facility]) [address] [place], [address], 08/03/2019 09:12:20 08/02/1908/03/2019 CMP, serum or plasm a bilirubin, total 0.8 mg/dL 0.0-1. 2 Not Available [facility] ([facility]) [address] [place], [address], 08/03/2019 09:12:20 08/02/1908/03/2019 CMP, serum or plasm a alkaline phosphatase 67 IU/L 39-117 Not Available [facility]) [address] [place], [address], 08/03/2019 09:12:20 08/02/1908/03/2019 CMP, serum or plasm a AST (SGOT) 44 IU/L 0-40 above high normal Not Available [facility] ([facility]) [address] [place], [address], 08/03/2019 09:12:20 08/02/1908/03/2019 CMP, serum or plasm a ALT (SGPT) 38 IU/L 0-32 above high normal Not Available [facility] ([facility]) [address] [place], [address], 08/03/2019 09:12:20 08/02/1908/03/2019 CBC WBC 7.0 x10e3 /uL 3.4-10 .8 Not Available [facility] ([facility]) [address] [place], [address], 08/03/2019 09:12:21 08/02/1908/03/2019 CBC RBC 4.79 x10e6 /uL 3.77-5 .28 Not Available [facility] ([facility]) [address] [place], [address], 08/03/2019 09:12:21 08/02/1908/03/2019 CBC hemoglobin 14.9 g/dL 11.1-1 5.9 Not Available [facility] ([facility]) [address] [facility], [place], [address], 08/03/2019 09:12:21 08/02/1908/03/2019 CBC hematocrit 44.1 % 34.0-4 6.6 Not Available [facility] ([facility]) [address] [facility], [place], [address], 08/03/2019 09:12:21 08/02/1908/03/2019 CBC MCV 92 fL 79-97 Not Available [facility] ([facility]) [address] [facility], [place], [address], 08/03/2019 09:12:21 08/02/1908/03/2019 CBC MCH 31.1 pg 26.6-3 3.0 Not Available [facility] ([facility]) [address] [facility], [place], [address], 08/03/2019 09:12:21 08/02/1908/03/2019 CBC MCHC 33.8 g/dL 31.5-3 5.7 Not Available [facility] ([facility]) [address] [place], [address], 08/03/2019 09:12:21 08/02/1908/03/2019 CBC RDW 12.6 % 11.7-1 5.4 Not Available [facility] ([facility]) [address] [facility], [place], [address], 08/03/2019 09:12:21 08/02/19 20 08/03/2019 CBC platelets 319 x10e3 /uL 150-45 0 Not Available [facility] (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) [address] [place], [address], 08/03/2019 09:12:21 08/02/1908/03/2019 lipid panel , serum cholesterol, total 223 mg/dL 100-19 9 above high normal Not Available [facility] ([facility]) [address] [place], [address], 08/03/2019 09:12:22 08/02/1908/03/2019 lipid panel , serum triglyceride s 203 mg/dL 0-149 above high normal Not Available [facility] ([facility]) [address] [facility], [place], [address], 08/03/2019 09:12:22 08/02/1908/03/2019 lipid panel , serum HDL cholesterol 44 mg/dL >39 Not Available [facility] ([facility]) [address] [facility], [place], [address], 08/03/2019 09:12:22 08/02/1908/03/2019 lipid panel , serum VLDL cholesterol elliot 41 mg/dL 5-40 above high normal Not Available [facility] ([facility]) [address] [place], [address], 08/03/2019 09:12:22 08/02/1908/03/2019 lipid panel , serum LDL cholesterol calc 138 mg/dL 0-99 above high normal Not Available [facility] (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) [address] [facility], [place], [address], 08/03/2019 09:12:22 08/02/1908/03/2019 lipid panel , serum LDL/HDL ratio 3.1 ratio 0.0-3. 2 LDL/H DL Ratio Men Women 1/2 Avg.R isk 1.0 1.5 Avg.R isk 3.6 3.2 2X Avg.R isk 6.2 5.0 3X Avg.R isk 8.0 6.1 Not Available [facility] ([facility]) [address] [facility], [place], [address], 08/03/2019 09:12:22 08/02/1908/03/2019 vitam in D, 25-hy droxy , total , serum vitamin D, 25-hydroxy 41.1 NG/mL 30.0-1 00.0 Vitam in D defic iency has been defin ed by the Insti tute of Medic ine and an Endoc rine Socie ty pract ice guide line as a level of serum 25-OH vitam in D less than 20 ng/mL (1,2) . The Endoc rine Socie ty went on to furth er defin e vitam in D insuf ficie ncy as a level betwe en 21 and 29 ng/mL (2). 1. IOM (Inst itute of Medic ine). 2009. Dieta ry refer ence calvin es for calci um and D. Marielos cheney [place]: The Natio nal [facility]ade [facility] Press . 2. Ruth silverman MF, Alex smallwood [place], Caleb off-F errar i CHÁVEZ, et al. Evalu ation , treat ment, and preve ntion of vitam in D defic iency : an Endoc rine Socie ty clini elliot pract ice guide line. JCEM. 2010; 96(7) :1911 -30. Not Available [facility] (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 A negat asaf resul t does not precl ude the possi bilit y of 2019- nCoV infec tion since the adequ acy of sampl e colle ction and/o r low viral burde n may resul t in the prese nce of viral nucle ic acids level s below the david tical sensi tivit y of this test metho d. 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 This test is only autho rized for the durat ion of the decla ratio n and the circu mstan myles that exist to justi fy the autho rizat ion of the emerg ency use of in vitro diagn ostic tests for the detec tion of SARS- CoV-2 virus and/o r diagn osis of COVID -19 infec tion under secti on 564 (b) (1) of the Act. 11 U.S.C . 360bb b-3 (b) (1), unles s the autho rizat ion is termi nated or revok ed soone r. 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 This testi ng was perfo rmed in the [facility] [place] [address] (CLIA Licen se #[id number], CAP #[id number], AU-ID #[id number]). 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 [address] (Cardiology & Emg) [address] [place] [address], [address], 12/01/2019 07:25:13 01/28/20 20 01/28/2020 MAMMO , scree tung, bilat eral No observ ation record ed. [address] (Imaging) [address] [place] [address], [address], 03/13/2020 18:01:28 02/04/20 20 01/28/2020 bone densi ty No observ ation record ed. [facility] (Admitting) [address] [place] [address], [address], 02/08/2020 14:32:44 02/22/20 20 02/22/2020 naomi KIM No observ ation record ed. [facility] (Imaging) [facility] [address], [address], 02/22/2020 15:29:26 Result Notes None recorded. Problems Name Problem SNOMED Code Status Onset Date Resolution Date Notes Provider Name and Address Organization Details Recorded Time Essential Syntricityensio n 82246216 Active 2019 Dwayne Milner MD Attn: Fawad g,[address] [facility], [place], [address], [place] - [facility] 0 11:18:51 Sleep apnea 01358266 Active 2019 Dwayne Milner MD Attn: Ravinchema bagley,[address] [place], [address], [place] [facility] 0 11:19:03 Chronic low back pain 601126566 Active 2019 Dwayne Milner MD Attn: Ravinchema bagley,[address] [place], [place], [address] [place] [address], [place] - [facility] 0 11:19:22 Obesity 211719901 Active 2019 Dwayne Milner MD Attn: Fawda kevyn,[address] [place], [place], [address] [place] [address], [place] - [facility] 0 11:27:54 Postmenopau [place] 51761096 Active 2019 Dwayne Milner MD Attn: Fawad kevyn,[address] [place], [address], [place] [facility] 0 11:36:31 Pain of right shoulder joint 4373165973628 9100 Active 2019 Dwayne Milner MD Attn: Fawad kevyn,[address] [place], [address], [place] [facility] 0 12:44:36 Abnormal sensation 044613935 Active 2019 CAMRYN Milner MD Attn: Fawad bagley,[address] [place], [address], [place] [facility] 0 12:46:52 Problem Notes None recorded. Procedures Surgical History Date Name Laterality Status Provider Name and Address Organization Details Recorded Time Appendectomy completed Raiza Esparza [place] [facility] 08/02/2019 10:47:27 Caesarean Section completed Raiza atkinson MA [facility] - [facility] 08/02/2019 10:47:33 Imaging Results Imaging Date Name Status LastModified by Organiz ation Details LastModified Time 11/23/2019 nerve conduction study/EMG, upper extremity (PROC) completed [id number] [facility] (Cardiology & Emg) [address] [facility] [address], [place], [address], 12/01/2019 07:25:13 01/28/2020 MAMMO, screening, bilateral completed [address] (Imaging) [address] [facility] [address] [place] [address], [address], 03/13/2020 18:01:28 01/28/2020 bone density completed [facility] (Admitting) [address] [place] [address] [address] [facility], [place], [address], 02/08/2020 14:32:44 02/22/2020 US, breast completed [facility] (Imaging) [address] [facility], [place], [address], 02/22/2020 15:29:26 Procedure Notes None recorded. Medical Equipment None Reported. Allergies Allergen ID Allergen Name Allergen Category Reaction Reaction Severity Criticality Documentation Date Start Date Code Code System Note Provider Name and Address Organization Details Recorded Time 996308 shellfish derived food,medi cation Not available Not available Not available 08/02/2019 80266 UNK Not Available Not Available Not Available Medications Name Sig Start Date Stop Date Status Note LastModified by Organization Details LastModified Time lisinopril 20 mg-hydrochlo rothiazide 12.5 mg tablet Take 1 tablet every day by oral route. active Not Available Not Available No t Available amlodipine 5 mg tablet Take 1 tablet(s ) every day by oral route. active Not Available Not Available No t Available famotidine 20 mg tablet Take 1 tablet every day by oral route. 2019 active Not Available Not Available Not Avai lable diclofenac sodium 75 mg tablet,delay ed release Take 1 tablet(s ) every day by oral route. 2019 active Not Available Not Available Not Avai lable gabapentin 100 mg capsule Take 1 capsule 3 times a day by oral route. 01/18 completed Not Available Not Available Not Available Vitals Date Recorded Body weight Body mass index (BMI) Body height Body temperature Heart rate Oxygen saturation Oxygen saturation in Arterial blood by Pulse oximetry Systolic blood pressure Diastolic blood pressure Provider Name and Address Organization Details Last Updated DateTime 0 48470.2 9 g 36.2 kg/m2 157.48 cm 98.1 [degF] 72 /min 99 % 99 % 138 mm[Hg] 84 mm[Hg] Raiza Esparza MA [facility] 0 10:45:21 Social History Question Answer Notes LastModified by Organizat ion Details LastModified Time Tobacco Smoking Status Never Smoker Raiza Esparaz MA null, [facility] 08/02/2019 10:46:54 What Was The Date Of Your Most Recent Tobacco Screening? 10/06/2019 [email or web address] Information not available 10/06/2019 Sex: Unknown Functional Status None recorded. Mental Status None recorded. Family History Relationship Description Onset Age of this Age Resolved Age Notes LastModified by Organization Details LastModified Time Mother Hypertensive disorder [email or web address] Not available 2019 10:46:50 Medical History Condition Response Muscle, Joint, or Bone Problems Y High Blood Pressure Y Gynecological HistoryNo gynecological history recorded. Obstetrics History GPAL:G 0 P 0 0 0 0 Past Encounters Encounter ID Performer Location Encounter Start Date Encounter Closed Date Diagnosis/Indication Diagnosis SNOMED-CT Code Diagnosis ICD10 Code Diagnosis Note [id number] [facility] [address] [place] [address] 08/02/2019 09:48:01 08/03/2019 16:11:23 Chronic low back pain 340631811 M54.5 Sleep apnea 05123827 G47 .30 Essential hypertension 19938994 I10 Obesity 732353946 E66.9 Postmenopausal state 764 98274 Z78.0 [id number] MD Monique Perdomo (Adult Med) [address] [place] [address] 10/06/2019 11:40:16 10/07/2019 06:44:57 Abnormal sensation 772143751 R20.9 Pain of ri ght shoulder joint 5884250931 4022736 M25.511 Essential hypertension 08158175 I10 [id number] ERASMO Mendoza [address] [place] [address] 11/25/2019 12:52:23 11/26/2019 10:29:30 Suspected COVID-19 491605172 Z03.818 D/w pt the current pandemic of COVID-19 and call for social isolation in order to blunt the curve and minimize risk and spread. Encouraged patient and family to take restrictio ns seriously. They have verbalized understand ing of such. Viral syndrome 679714847 B34.9 [id number] Gilmer Parra MD [facility] (Adult Med) [address] [place] [address] 01/19/2020 08:20:38 01/20/2020 12:58:16 Painful rectal bleeding 866697522 K62.5 Discussed with patient, she agreed for GI referral first. She prefers [facility]. Health Concerns Section Related Observation LastModified by Organization Detai ls LastModified Time None Recorded Concern Status LastModified by Organization Details LastModified Time None Recorded Advance Directives Directive None Recorded Payers Encounter Date Sequence Insurance Name Policy Number Policy Stinson Covered Member ID Stinson Member ID Guarantor Name 08/02/2019 1 [employer] - CHOICE (POS II) [id number] Ami Sepulveda [id number] Ami Derick 10/06/2019 1 [employer] - CHOICE (POS II) [id number] Ami Sepulveda [id number] Ami Derick 11/25/2019 1 [employer] - CHOICE (POS II) [id number] Ami Sepulveda [id number] Ami Derick 01/19/2020 1 [employer] - CHOICE (POS II) [id number] Ami Derick [id number] Ami Sepulveda Notes Date Note Type Note Provider Name and Address Organization Details Recorded Time 08/02/2019 text/html Changing physicians Dwayne Milner MD Attn: Accounting,[address] [place], [address], [facility] 08/02/2019 11:41:50 10/06/2019 text/html Telephone visit due to Covid-19 precautions. Has progression of pain and abnormal sensation involving RUE. Some sensation also in neck. Symptoms beginning to appear on the left. There is some weakness.. She is also experiencing mild anxiety because of the worldwide health problems. Dwayne Milner MD Attn: Accounting,[address] [place], [address], [facility] 10/06/2019 12:58:07 11/25/2019 text/html COVID ScreeningReported bypatient.Onset/Durati on of fever:no fever Associated Symptoms:cough; no cough; no shortness of breath ComorbiditiesHeart Disease(HTN)COVID-19 Symptoms October 2019Reported bypatient.COVID-19 Signs and Symptomscough resolved; cough same; fever resolved; shortness of breath resolved; chills resolved; repeated shaking with chills resolved; muscle pain resolved; headache resolved; sore throat resolved; sore throat same; loss of taste or smell resolved; vomiting or diarrhea resolved; fatigue resolved; anorexia resolved Associated Symptoms:no sputum production; no wheezing; no runny nose; no vomiting; no diarrhea; no body aches; no nausea; no change in mental status; no hypotension; no tachycardia 54 yo female ,spoke via phone with C/O, sore throat, cough X 1 day, denies being exposed to pos COVID person.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 SHARON Peres NP Attn: Accounting,[address] [facility], [place], [address], [facility] 11/25/2019 13:10:23 01/19/2020 text/html This is phone vi sit, due to browning virus pandemic, she understood and agreed, allergic to shellfish derived, C/.C rectal bleeding on and off for the [past 5 months, she had colonoscopy ex about 20 years ago, she thought she has fissure , agreed for GI referral. Gilmer Parra MD Attn: Accounting,[address] [facility], [place], [address], [facility] 01/19/2020 16:13:45 OBGyn Episode No OBEpisode recorded.
--- OUTSIDE RECORDS SUMMARY | 2024-07-09 08:10 | XMS_ITS | Encounter Summary ---
Author Organization [facility] Healthcare Address [address] [place] [address] Care Team Providers Care Dulite Machine Bluer Name Role Phone Rigoberto Adames MD Primary Care Provider [phone] Reason for Visit * Reason Onset Date Comments meds 07/02/2024 Encounter Details Date Type Department Care Team (Late st Contact Info) Description 07/02/2024 Telephone [facility] Medical Group Orthopedics and Sports Medicine [address] [place] [phone] Matt Pfeiffer PA [address] [place] [phone] meds Social History Tobacco Use Types Packs/Day Years [...] file Not on file Not on file documented as of this encounter Miscellaneous Notes * Telephone Encounter - Cesia Gaviria - 07/02/2024 8:24 AM CST Pt is asking if she is to get an anti-inflamatory per her recent appt ? Please advise ONAL COUNSELOR documented in this encounter Plan of Treatment Not on file documented as of this encounter Visit Diagnoses Not on filedocumented in this encounter Care Teams Dulite Machine Bluer Relationship Specialty Start Date End Date Rigoberto Adames MD PCP - General Family Medicine 12/01/20 documented as of this encounter
--- OUTSIDE RECORDS SUMMARY | 2024-07-09 08:11 | XMS_ITS | Clinical Summary ---
Author Organization [facility] Building [address] [place] [phone] Care Team Providers Care Distribution Warehouse Manager Name Role Phone Rigoberto Adames MD Primary Care Provider [phone] Allergies Active Allergy Reactions Criticality Noted Date [...] Active Active Problems No known active problems Encounters Date Type Department Care Team Description 07/02/2024 Telephone [facility] Orthopedics and Sports Medicine [address] [place] [address] [place] [phone] Matt Pfeiffer PA meds 06/30/2024 1:30 PM DEVELOPMENT ASSOCIATE Office Visit [facility] Orthopedics and Sports Medicine [address] [place] [address] [place] [phone] Matt Pfeiffer PA Chronic pain of right knee (Primary Dx) 06/30/2024 1:02 PM DEVELOPMENT ASSOCIATE - 06/30/2024 11:59 PM DEVELOPMENT ASSOCIATE Hospital Encounter [facility] [address] [place] [address] Right knee pain, unspecified chronicity Discharge Disposition: Discharge to home or self care 05/19/2024 9:17 AM DEVELOPMENT ASSOCIATE - 05/19/2024 11:59 PM DEVELOPMENT ASSOCIATE Hospital Encounter [address] [address] Essential hypertension, malignant Discharge Disposition: Discharge to home or self care 05/19/2024 9:15 AM DEVELOPMENT ASSOCIATE Lab [facility] Outpatient Lab at [address] [phone] Essential hypertension, malignant (Primary Dx) from Last 3 Months Surgical History Surgery Date Site/Laterality Comments SECTION LUMBAR FUSION Medical History Medical History Date Comments Ear problems Arthritis Hypertension Obesity Pneumonia Sleep apnea Spina bifida (HCC) Depression Family History Medical History Relation Name Comments Arthritis Brother Hypertension Brother Mental illness Brother Arthritis Father Hypertension Father Mental illness Father Arthritis Mother Cancer Mother Hypertension Mother Scoliosis Mother Spondylolisthesis Mother Hypertension Son Mental illness Son Relation Name Status Comments Brother Father Alive Mother Alive Son Social History Tobacco Use Types Packs/Day Years [...] file Not on file Not on file Obstetrics History Last Filed Vital Signs Vital Sign Reading Time Taken Comments Blood Pressure 108/70 11/16/2019 9:26 AM CDT Pulse 80 09/28/2018 9:44 AM CDT Temperature 36.2 C (97.1 F) 07/24/2021 8:56 AM DEVELOPMENT ASSOCIATE Respiratory Rate - - Oxygen Saturation - - Inhaled Oxygen Concentration - - Weight 68 kg (150 lb) 06/30/2024 1:11 PM DEVELOPMENT ASSOCIATE Height 157.5 cm (5' 2 ) 06/30/2024 1:11 PM DEVELOPMENT ASSOCIATE Body Mass Index 27.44 06/30/2024 1:11 PM DEVELOPMENT ASSOCIATE Plan of Treatment Health Maintenance Due Date Last Done Comments Breast Cancer Screening-Mammogram 1965 Cervical Cancer Screening 1967 Colon Cancer Screening-Colonoscopy 1967 Depression Screening 1967 Hepatitis C Screening 1967 DTaP/Tdap/Td Vaccine (1 - Tdap) 08/25/1978 Hepatitis B Screening 08/25/1985 Regular Well Visit/Exam 18-64 08/25/1985 Zoster Vaccine (1 of 2) 08/25/2017 Covid-19 Vaccine (3 - 2023-2 5 season) 2024 07/12/2020, 06/14/2020 Influenza Vaccine Completed 03/26/2024, 04/01/2023 Pneumococcal vaccine <65 Aged Out No longer eligible based on patient's age to complete this topic Procedures Procedure Name Priority Date/Time Associated Diagnosis Comments XR KNEE RIGHT 3 VIEWS Schedule Routine, Read Routine (OP Routine) 06/30/2024 1:03 PM DEVELOPMENT ASSOCIATE Right knee pain, unspecified chronicity EGFR Routine 05/19/2024 9:17 AM DEVELOPMENT ASSOCIATE Essential hypertension, malignant TSH Routine 05/19/2024 9:17 AM DEVELOPMENT ASSOCIATE Essential hypertension, malignant BASIC METABOLIC PANEL Routine 05/19/2024 9:17 AM DEVELOPMENT ASSOCIATE Essential hypertension, malignant CBC WITHOUT DIFFERENTIAL Routine 05/19/2024 9:17 AM DEVELOPMENT ASSOCIATE Essential hypertension, malignant LIPID PANEL Routine 05/19/2024 9:17 AM DEVELOPMENT ASSOCIATE Essential hypertension, malignant from Last 3 Months Results * XR Knee Right 3 Views (06/30/2024 1:03 PM DEVELOPMENT ASSOCIATE) Anatomical Region Laterality Modality Lower Extremities, Knee Right Computed Radiography 07/03/2024 7:20 AM DEVELOPMENT ASSOCIATE Narrative 07/03/2024 7:20 AM DEVELOPMENT ASSOCIATE EXAM DESCRIPTION: XR KNEE RIGHT 3 VIEWS [...] by Jeancarlos Petersen M.D. T: Report ID: [id number] Reading Location: [id number] Procedure Note Jeancarlos Petersen MD - 07/03/2024 [...] by Jeancarlos Petersen M.D. T: Report ID: [id number] Reading Location: [place] [address] [address] [facility] XR PROCEDURES Final R esult * eGFR (05/19/2024 9:17 AM DEVELOPMENT ASSOCIATE) eGFR 72 >=60 mL/min/1. 73 m2 Comment: [...] last reviewed 2021. Blood 05/19/2024 9:17 AM DEVELOPMENT ASSOCIATE 05/19/2024 10:26 PM DEVELOPMENT ASSOCIATE Rigobertomariza Adames MD LAB BLOOD ORDERABLES Final R esult Performing Organization Address City/[facility] Co de Phone Number KARTIK URIARTE [address] [employer] [place] [address] * (ABNORMAL) CBC without differential (05/19/2024 9:17 AM DEVELOPMENT ASSOCIATE) WBC 5.3 3.8 - 9.9 K/cumm Hgb 14.0 11.9 - 15.5 g/dL [facility] Hct 44.0 35.6 - 45.5 % [facility] Plt 264 150 - 400 K/cumm [facility] MPV 10.2 9.1 - 12.3 fL [facility] RBC 4.49 3.90 - 5.20 M/cumm [facility] CH MCV 98.0(H) 81.3 - 96.4 fL [facility] MCH 31.2 27.1 - 33.3 pg [facility] MCHC 31.8(L) 32.3 - 35.7 g/dL [facility] RDW CV 13.6 11.1 - 14.9 % [facility] RDW SD 49.3(H) 35.7 - 48.1 fL [facility] NRBC abs 0.00 0.00 - 0.01 K/cumm [facility] CH Blood (Blood, Venous) 05/19/2024 9:17 AM DEVELOPMENT ASSOCIATE 05/19/2024 6:57 PM DEVELOPMENT ASSOCIATE Narrative [facility] - 05/19/2024 9:42 PM DEVELOPMENT ASSOCIATE Fax results To Dr Rigoberto Adames [phone] Rigobertomariza Adames MD LAB BLOOD ORDERABLES Final R esult Performing Organization Address City/[facility]/ZIP Co de Phone Number KARTIK URIARTE [address] [employer] [place], [place] [id number] * TSH (05/19/2024 9:17 AM DEVELOPMENT ASSOCIATE) Thyroid Stimulating Hormone 1.33 0.30 - 4.20 mcIUnit/mL Blood (Blood, Venous) 05/19/2024 9:17 AM DEVELOPMENT ASSOCIATE 05/19/2024 6:57 PM DEVELOPMENT ASSOCIATE Narrative KARTIK URIARTE - 05/19/2024 10:58 PM DEVELOPMENT ASSOCIATE Fax results To Dr Rigoberto Adames [phone] us Rigobertomariza Adames MD LAB BLOOD ORDERABLES Final R esult KARTIK [address] [address] Department [place] [address] * (ABNORMAL) Lipid panel (05/19/2024 9:17 AM DEVELOPMENT ASSOCIATE) Cholesterol 213(H) 30 - 199 mg/dL Comment: [...] on 2018. Triglycerides 116 <=149 mg/dL KARTIK URIARTE Comment: Interpretive Data Ages [...] 2018. LDL, calculated 142(H) <=129 mg/dL KARTIK URIARTE Comment: Interpretive Data Ages < or = 19 years Acceptable: <110 mg/dL Borderline high: 110-129 mg/dL High: >or= 130 mg/dL Ages > or = 20 years Optimal: <100 mg/dL Near optimal: 100-129 mg/dL Borderline high: 130-159 mg/dL High: >160 mg/dL Calculated using the Milo LDL-C estimating equation. This equation was implemented on 2024. Prior to this date LDL-C was estimated using the Friedewald equation. Literature References: 1. Expert Panel on Integrated Guidelines for Cardiovascular Health and Risk Reduction in Children and Adolescents. Pediatrics 2011;128:S213 2. NCEP Expert Panel. Circulation 2004;110:227 3. Milo Terry et al. ANGELA Cardiol. 2020 September 30;5(5):540-548. doi: 10.1001/jamacardio.2020.0013 Current Interpretive Data was last revised on 2024. Non-HDL Cholesterol 163 mg/dL KARTIK URIARTE Comment: Interpretive Data Ages [...] last revised on 2018. Chol/HDL ratio 4 KARTIK Blood (Blood, Venous) 05/19/2024 9:17 AM DEVELOPMENT ASSOCIATE 05/19/2024 6:57 PM DEVELOPMENT ASSOCIATE Narrative [facility] - 05/19/2024 10:58 PM DEVELOPMENT ASSOCIATE Fax results To Dr Rigoberto Adames [phone] Rigoberto Adames MD LAB BLOOD ORDERABLES Final R esult Performing Organization Address [facility]/ZIP Co wa Phone Number KARTIK [phone] [address] Department [place] [address] * Basic metabolic panel (05/19/2024 9:17 AM DEVELOPMENT ASSOCIATE) Pathologist [facility] Sodium 138 135 - 145 mmol/L Potassium, pl 4.5 3.3 - 4.9 mmol/L [facility] Chloride 103 97 - 110 mmol/L [facility] CO2 27 22 - 32 mmol/L [facility] Anion gap 8 2 - 15 mmol/L [facility] BUN 13 6 - 25 mg/dL [facility] Creatinine 0.93 0.60 - 1.10 mg/dL [facility] Glucose 86 70 - 199 mg/dL [facility] Comment: Interpretive Data Fasting glucose >/= 126 [...] 2022. Calcium 9.9 8.5 - 10.3 mg/dL [facility] Blood 05/19/2024 9:17 AM DEVELOPMENT ASSOCIATE 05/19/2024 6:57 PM DEVELOPMENT ASSOCIATE Narrative [facility] - 05/19/2024 10:58 PM DEVELOPMENT ASSOCIATE Fax results To Dr Rigoberto Adames [phone] Rigoberto Adames MD LAB BLOOD ORDERABLES Final R esult Performing Organization Address [facility] [place] [address] [address] Department [place] [address] from Last 3 Months Insurance [facility] HMO [employer] OPEN ACCESS [facility] Care Teams Distribution Warehouse Manager Relationship Specialty Start Date End Date Rigoberto Adames MD PCP - General Family Medicine 12/01/20
== END 2024-07-09 08:03 | disposition home or self-care (01) ==
LOC: ANHIMG 08:04
PROVIDERS: PCP Family Medicine; Visit Provider Obstetrics & Gynecology
DX: Z12.31 Encounter for screening mammogram for malignant neoplasm of breast (principal)
CPT/HCPCS: 77063; 77067